=== PATIENT | female | born 1930 | race African-American/Black ===

== ENCOUNTER 2017-11-07 16:17 | Emergency (ER) | payer OTHER ==
[~2017-11-07] VITALS: Ht 152.4 cm; Wt 65.8 kg
--- NOTE | ~2017-11-07 | EKG ---
[facility] [place] [address] ELECTROCARDIOGRAM REPORT Name: ALBERTINA GUZMAN Room #: DEP MELISSA Dominique#: [id number] Admission: 11/07/17 Attend Phys: Discharge: 11/07/17 Date of : [birth year] Report #: [id number] THIS REPORT FOR: //name// [facility] ED Test Date: 2017-11-07 Test Time: 18:01:41 Pat Name: ALBERTINA GUZMAN Department: Room: Gender: F Vascular Sonographer: SARIAH : 1930 Requested By: Peg Love Order Number: [id number] MD: Baldo Pierre Measurements Intervals [place] Rate: 55 P: -4 [place]: 197 QRS: -16 QRSD: 92 T: -15 QT: 446 QTc: 427 Interpretive Statements Sinus bradycardia Borderline left axis deviation Nonspecific T wave abnormality Compared to ECG 12/02/2016 09:15:28 No significant changes Electronically Signed On 11-10-2017 7:16:50 REIMBURSEMENT REP by Baldo Pierre [email or web address] <ELECTRONICALLY SIGNED> By: Baldo Pierre MD, [facility] 11/10/17 0716 180 00 Baldo Pierre MD, FACC /EPI
[~2017-11-07 16:17] MED LIST: ADVAIR 100-501 EACH INH; ANTIVERT25 MG PO; ANUSOL-HC25 MG RECTAL; ASPIR 8181 MG PO; ATENOLOL 25MG T25 MG PO; CELEXA20 MG PO; CENTRUM SILVER1 EAC4 PO; COZAAR 25 MG TA25 M1 PO; FLOVENT DISKUS50 MCG IH; NORCO 5-325 TA1 EACH PO; PREDNISONE 20 M20 M1 PO; PRENATAL PO; PROCARDIA XL60 MG PO; PROTONIX40 M1 PO; RESTORIL15 MG PO; TRANSDERM-SCO1 PATC1 TD; TRAVATAN Z2.5 ML OPHTHALMIC; VITAMIN D1000 UNI1 PO; VITAMIN E100 UNIT PO; XANAX 0.5 MG0.5 M1 PO; ZANAFLEX4 MG PO
[2017-11-07 17:48] LABS: ABSOLUTE NEUTROPHILS 1.9 thou/uL (1.4-8.2); EOSINOPHILS 11.4 % (0.0-3.0); HEMATOCRIT 33.5 % (37.0-47.0); MCH 29.6 pg (26.0-34.0); MCHC 32.8 g/dL (28.0-37.0); MCV 90.3 fL (80.0-100.0); MONOCYTES 10.5 % (1.0-8.0); PLATELET COUNT 163 thou/uL (150-400); POLYS 34.1 % (36.0-66.0); RBC 3.71 mil/uL (4.20-5.00); RDW 13.7 % (10.5-14.5); WBC 5.6 thou/uL (4.0-11.0)
[2017-11-07 17:54] LABS: CALCIUM 9.3 mg/dL (8.5-10.1); CREATININE 1.4 mg/dL (0.6-1.0); POTASSIUM 3.6 mmol/L (3.5-5.1)
[2017-11-07] MEDS ORDERED: DIOVAN 80 MG TA80 M1 PO (17:57)
[2017-11-07] MEDS ORDERED: ZANTAC 150MG T150 MG PO (17:57)
[2017-11-07 18:00] LABS: ALBUMIN 3.4 g/dL (3.4-5.0); TOTAL BILIRUBIN 0.4 mg/dL (<0.1-1.0); TOTAL PROTEIN 6.6 g/dL (6.4-8.2)
[2017-11-07 18:09] LABS: URINE BILIRUBIN NEGATIVE (Negative); URINE BLOOD NEGATIVE (Negative); URINE CLARITY CLEAR; URINE COLOR YELLOW; URINE GLUCOSE-RANDOM* NEGATIVE (Negative); URINE KETONES NEGATIVE (Negative); URINE LEUKOCYTES NEGATIVE (Negative); URINE NITRITE NEGATIVE (Negative); URINE PROTEIN (DIPSTICK) NEGATIVE (Negative); URINE UROBILINOGEN 0.2 E.U./dl (0.2-1.0)
[2017-11-07 18:22] LABS: LARGE PLATELETS RARE
[2017-11-07 19:50] VITALS: BP 151/57
== END 2017-11-07 19:50 | disposition home or self-care (01) ==
LOC: ER 16:17
PROVIDERS: Physician Assistant
DX: I12.9 Hypertensive chronic kidney disease with stage 1 through stage 4 chronic kidney disease, or unspecified chronic kidney disease (principal); N18.3 Chronic kidney disease, stage 3 (moderate); K21.9 Gastro-esophageal reflux disease without esophagitis; Z88.1 Allergy status to other antibiotic agents

== ENCOUNTER 2018-01-11 16:02 | Inpatient (IN) | payer OTHER ==
[~2018-01-11] VITALS: Ht 152.4 cm; Wt 75.6 kg
--- NOTE | ~2018-01-11 | EKG ---
[address] [address] ELECTROCARDIOGRAM REPORT Name: ALBERTINA GUZMAN Room #: 212-P ADM IN M.R.#: [id number] Admission: 01/11/18 Attend Phys: Олег Ge MD Discharge: Date of : [birth year] Report #: [id number] THIS REPORT FOR: //name// [facility] ED Test Date: 2018-01-11 Test Time: 16:19:13 Pat Name: ALBERTINA GUZMAN Department: Room: [facility] Gender: F Show Host Or Hostess: Omayra STREETER : 1930 Requested By: Oziel Rea Order Number: [id number] MD: Jas Shahid Measurements Intervals [place] Rate: 125 P: [place]: QRS: -27 QRSD: 72 T: 9 QT: 325 QTc: 469 Interpretive Statements Atrial flutter Borderline left axis deviation Abnormal R-wave progression, late transition Compared to ECG 11/07/2017 18:01:41 Sinus bradycardia no longer present T-wave abnormality no longer present Electronically Signed On 01-11-2018 20:06:59 CDT by Jas Shahid [email or web address] <ELECTRONICALLY SIGNED> By: Jas Shahid MD 01/11/182005 1619 18 Jas Shahid MD /EPI
--- NOTE | ~2018-01-11 | 2DMMODE ---
[facility] [place] [address] 2 D/M-MODE ECHOCARDIOGRAM Name: ALBERTINA GUZMAN Room #: 247-P ADM IN M.R.#: [id number] Admission: 01/11/18 Attend Phys: Олег Ge MD Discharge: Date of : [birth year] Date of Service: 01/15/18 1633 Report #: [id number] THIS REPORT FOR: //name// APPROVED REPORT Study performed: 01/15/2018 14:17:22 EXAM: Limited 2D, Doppler, and color-flow Echocardiogram Patient Location: ICU Room #: 247 Status: stat BSA: 1.62 HR: 95 bpm BP: 110/58 mmHg Rhythm: Irregular Other Information Study Quality: Adequate Indications STAT limited echo for Bradycardia. S/P code. Afib. (Complete echo done 01/12/18) Tricuspid Valve TR Peak Herman.: 3.35 m/s RAP Estimate: 10.00 mmHg TR Peak Gr.: 44.97 mmHg PA Pressure: 55.00 mmHg Left Ventricle The left ventricle is normal size. Left ventricular systolic function is normal. LVEF is 60-65%. Right Ventricle The right ventricle is normal size. The right ventricular systolic function is normal. Atria Left atrium is dilated. Right atrium is dilated. Aortic Valve The aortic valve is normal in structure. Mitral Valve The mitral valve is normal in structure. Mild mitral annular calcification. Trace mitral regurgitation. [facility] [address] [place] [address] 2 D/M-MODE ECHOCARDIOGRAM Name: ALBERTINA GUZMAN Room #: 247-P ADM IN M.R.#: [id number] Admission: 01/11/18 Attend Phys: Олег Ge MD Discharge: Date of : [birth year] Date of Service: 01/15/181632 Report #: [id number] Tricuspid Valve The tricuspid valve is normal in structure. Moderate tricuspid regurgitation. Estimated PAP is 55mmHg. Great Vessels IVC is normal in size and collapses <50% with inspiration. Pericardium Trivial Posterior pericardial effusion noted. <Conclusion> The left ventricle is normal size. LVEF is 60-65%. The right ventricle is normal size. Left atrium is dilated. Right atrium is dilated. The mitral valve is normal in structure. Mild mitral annular calcification. Trace mitral regurgitation. Moderate tricuspid regurgitation. Estimated PAP is 55mmHg. Trivial Posterior pericardial effusion noted. <ELECTRONICALLY SIGNED> By: Albert Espinoza MD, FACC 01/15/181632 32 32 Albert Espinoza MD, FACC /INF
--- NOTE | ~2018-01-11 | HC ---
[facility] [place] [address] CONSULTATION Name: ALBERTINA GUZMAN Room #: 201-P [facility] IN M.R.#: [id number] Admission: 01/11/18 Attend Phys: Олег Ge MD Discharge: 01/22/18 Date of : [birth year] Report #: [id number] THIS REPORT FOR: //name// CC: Fran Ge [facility] DATE OF SERVICE: 01/15/2018 REFERRING PROVIDER: Fran Moore MD. REASON FOR CONSULTATION: Respiratory failure, status post arrest. HISTORY OF PRESENT ILLNESS: Responded to code blue at room 247 in the ICU, was paged overhead. The patient was being intubated by Dr. Crowder of the Emergency Department and other staff in the room assisting with management. The patient had a bradycardic process, did not require any CPR, but did require bag mask ventilation by respiratory therapy until intubated. The patient was poorly responsive, had been on dopamine and been on amiodarone as well as diltiazem and beta blockers and was anxious to be discharged and developed significant somnolence and poorly unresponsive, transferred to ICU and as mentioned to be bradycardic, placed on dopamine, received atropine IV. The patient was being transcutaneously paced on my arrival. Once intubated, the patient had good breath sounds bilaterally. Attempted a right radial arterial line to assist with management unsuccessfully. The patient's [place] heart rhythm returned with what appeared to be atrial fibrillation with a rate between 70 and 90 consistently without transcutaneous pace making. Currently is poorly responsive, but did respond to pain with attempts at radial arterial line on ventilator support. ALLERGIES: NEOMYCIN, ATORVASTATIN. PAST MEDICAL HISTORY: 1. Sarcoidosis, severity unclear. Based on radiographs, probably stage 1 or 2 sarcoidosis. 2. History of meningioma of the brain, stable on recent imaging. 3. Atrial fibrillation. 4. Chronic renal insufficiency, stage 3. 5. Hiatal hernia. 6. Gastroesophageal reflux disease. 7. Hypertension. 8. Asthma, severity uncertain in the records. OUTPATIENT MEDICATIONS: Include Advair, Zantac, valsartan, Protonix, atenolol, Celexa, Xanax, Flonase, aspirin, Zanaflex, Travatan eyedrops, Restoril, Moneta. [address] [address] CONSULTATION Name: ALBERTINA GUZMAN Room #: 201-P [facility] IN M.R.#: [id number] Admission: 01/11/18 Attend Phys: Олег Ge MD Discharge: 01/22/18 Date of : [birth year] Report #: [id number] SOCIAL HISTORY: Apparently a never smoker. Unable to get any history from the patient. FAMILY HISTORY: Unobtainable due to patient's neurologic status. REVIEW OF SYSTEMS: Unavailable due to the patient's neurologic status. PHYSICAL EXAMINATION: GENERAL: The patient is afebrile. Pulse in the 80s and irregular. Respiratory rate 18 set on the mechanical ventilator. Blood pressure 90/70. GENERAL: This is an elderly woman, appears younger than stated age, on mechanical ventilatory support, unresponsive. ENT: Reveals somewhat dilated pupils. NECK: Supple. LUNGS: Clear to auscultation anteriorly. No wheezes. CARDIOVASCULAR: Heart was irregular, did not note any murmurs. ABDOMEN: Soft, no masses. EXTREMITIES: Had 2+ pulses in the upper and lower extremities. No edema. INTEGUMENT: No significant rash identified. LABORATORY DATA: White blood cell count was 5000, hemoglobin 11, hematocrit 32, platelet count 162. Sodium 140; potassium 4.8; chloride 108; bicarbonate 22; BUN 33; creatinine 2.2, stable compared to earlier; glucose 133. Troponin negative. Arterial blood gas at the time of resuscitation 7.30, pCO2 of 40, pO2 of 375, bicarbonate 19. This is with bag mask ventilation. Chest x-ray is pending. Prior chest x-ray on 01/11/2018 showed significant cardiomegaly with left atrial enlargement, mediastinal widening consistent with bilateral adenopathy, splaying of the yony. Multiple calcifications noted in the subcarinal area and right paratracheal area suggestive of calcified lymph nodes and possibly calcified nodules in the right lung also seen consistent with known history of sarcoid or other granulomatous disease. IMPRESSION: 1. Status post bradycardic arrest. No significant need for CPR. I do not see a need for hypothermia protocol. At this time, patient responsive to pain, but not arousable just yet. Otherwise, Cardiology to manage. No indication for transvenous pacer at this time. 2. Respiratory failure secondary to #1. The patient will just need supportive care until neurologic and cardiovascular statuses improve. 3. History of sarcoidosis. We will have to take further history from the patient post-extubation. 4. History of asthma. Continue with bronchodilators. No evidence of active bronchospasm. 5. Chronic renal insufficiency. SUGGESTIONS: [facility] [address] [place] [address] CONSULTATION Name: ALBERTINA GUZMAN Room #: 201-P DIS IN M.R.#: [id number] Admission: 01/11/18 Attend Phys: Олег Ge MD Discharge: 01/22/18 Date of : [birth year] Report #: [id number] 1. PICC line placement. 2. Await echo. 3. Continue with dopamine per Cardiology. 4. Consider CT of the chest to further evaluate lung findings, but these may be chronic and related to her sarcoidosis. 5. Reattempt placement of arterial line and the patient remains significantly hypotensive requiring pressors. 6. Await additional laboratories particular with electrolytes. 7. Further recommendations to follow. Total critical care time about 40 minutes to this point including attempted procedure. <ELECTRONICALLY SIGNED> By: Evan Madrid MD 01/26/18 1204 1500 2126 Evan Madrid MD /nt
--- NOTE | ~2018-01-11 | D ---
[facility] [place] [address] DISCHARGE SUMMARY Name: ALBERTINA GUZMAN Room #: 201-P ADM IN M.R.#: [id number] Admission: 01/11/18 Attend Phys: Олег Ge MD Discharge: Date of : [birth year] Report #: [id number] THIS REPORT FOR: //name// CC: Олег Morales Byron DATE OF SERVICE: 01/20/2018 SPECIAL OFFICER: Baldo Pierre MD from Cardiology. DISCHARGE DIAGNOSES: 1. Sick sinus syndrome/severe bradycardia. 2. Atrial fibrillation. 3. Congestive heart failure. 4. Dysphagia and speech difficulty likely secondary to Sjogren syndrome. 5. Acute kidney injury. 6. Chronic kidney disease. 7. Acute respiratory failure. 8. Sarcoidosis. 9. Acute metabolic encephalopathy. HOSPITAL COURSE: The patient is an 87-year-old female with history of hypertension, chronic kidney disease, sarcoidosis, asthma, meningioma, frequent falls at home with elevated blood pressure over the last few weeks precipitated over the last 2 days, presented to the Emergency Room secondary to elevated blood pressure and dizziness. Please look at history and physical examination dictated by Dr. Ge. In the Emergency Room, the patient was noted to be in AFib with RVR and hypertensive urgency. The patient also had acute on chronic renal failure. The patient was started on a Cardizem drip and admitted to the ICU. Initial lab work showed a potassium of 3.7, BUN and creatinine were 19 and 1.8. The patient was evaluated by vp software support. The patient underwent an echocardiogram, which showed normal ejection fraction. The patient coded on 01/15/2018. CPR was performed and the patient was intubated. The patient's secondary to bradycardia. The Cardizem was discontinued. The patient will restart back on a very low dose of atenolol 12.5 mg once a day. The patient also seen by Geriatric Service. Cognitive impairment is related to metabolic encephalopathy with possible underlying dementia. The patient was seen by atomic welder for dysphagia, underwent a video swallow study. The patient is able tolerate p.o. The patient also treated for bradycardia on dopamine drip. The patient has been off the dopamine drip for more than 48 hours. The patient's kidney functions have improved. The patient will be discharged to rehab center for inpatient physical and occupational therapy. Please look at the discharge summary completed for detailed information and the [facility] [address] [place] [address] DISCHARGE SUMMARY Name: ALBERTINA GUZMAN Room #: 201-P [facility] IN M.R.#: [id number] Admission: 01/11/18 Attend Phys: Олег Ge MD Discharge: Date of : [birth year] Report #: [id number] medication list. The patient needs renal function monitored closely in the rehab unit. The patient will follow up with PCP and Cardiology as outpatient. By: 1757 2044 Arun Dawson MD /nt
--- NOTE | ~2018-01-11 | EKG ---
[address] [address] ELECTROCARDIOGRAM REPORT Name: ALBERTINA GUZMAN Room #: 247-P ADM IN M.R.#: [id number] Admission: 01/11/18 Attend Phys: Олег Ge MD Discharge: Date of : [birth year] Report #: [id number] THIS REPORT FOR: //name// [facility] Test Date: 2018-01-16 Test Time: 09:24:21 Pat Name: ALBERTINA GUZMAN Department: Room: 247 P Gender: F Nurse Staff: Chanel MENDOZA : 1930 Requested By: Leonor Reese Order Number: [id number] MD: Baldo Pierre Measurements Intervals [place] Rate: 76 P: [place]: QRS: 15 QRSD: 82 T: 25 QT: 390 QTc: 439 Interpretive Statements Atrial fibrillation Poor R wave progression Compared to ECG 01/15/2018 14:16:40 Atrial flutter no longer present Electronically Signed On 01-16-2018 17:24:14 CDT by Baldo Pierre [email or web address] <ELECTRONICALLY SIGNED> By: Baldo Pierre MD, [facility] 01/16/18 1724 3 3 Baldo Pierre MD, [facility] /EPI
--- NOTE | ~2018-01-11 | HC ---
[facility] [place] [address] CONSULTATION Name: ALBERTINA GUZMAN Room #: 201-P ADM IN M.R.#: [id number] Admission: 01/11/18 Attend Phys: Олег Ge MD Discharge: Date of : [birth year] Report #: [id number] THIS REPORT FOR: //name// CC: Олег Matthews REASON FOR CONSULTATION: I was asked to evaluate concerning change in mental status and possible urinary tract infection as source. HISTORY OF PRESENT ILLNESS: The patient was an 87-year-old who was admitted on 01/11/2018 with atrial fibrillation, rapid ventricular response with hypertensive urgency. She was admitted to the Intensive Care Unit. Following initial treatment she became bradycardic and required intubation and mechanical ventilation. She was later extubated and has been placed on oxygen per nasal cannula. Overall, was improving, although last evening became more sedated and confused. No fever, chills or sweats. The patient unable to give much detail, but in discussion with attending and nursing staff, appears to have had ongoing mild headache and some neck discomfort. No pharyngitis symptoms. Denies any significant cough or sputum production. No nausea, vomiting or diarrhea. She is incontinent of urine. She was started on ceftriaxone today. Neurology has evaluated the patient and is currently undergoing an EEG. ALLERGIES: ATORVASTATIN, NEOMYCIN. MEDICATIONS: As noted on her MAR including alprazolam, meclizine, baclofen, hydrocodone in addition to the other medications as noted on her MAR. Ceftriaxone was started today. PAST MEDICAL HISTORY: Hypertension, hyperlipidemia, chronic kidney disease, asthma, sarcoidosis, meningioma, cardiomyopathy, DJD, hiatal hernia, gastroesophageal reflux, diverticulitis. FAMILY HISTORY: Noncontributory. SOCIAL HISTORY: Nonsmoker, no significant alcohol intake. REVIEW OF SYSTEMS: As noted above. PHYSICAL EXAMINATION: GENERAL: Currently afebrile, hemodynamically stable. She was lethargic, but awoken and able to converse. She was confused. Very weak. Did complain of headache. HEENT: Unremarkable. NECK: Supple. LUNGS: Clear. HEART: Irregular without appreciable murmur. ABDOMEN: Soft and nontender. No hepatosplenomegaly or mass. She had a right [facility] [address] [place] [address] CONSULTATION Name: ALBERTINA GUZMAN Room #: [address] [place] [address] IN .R.#: [id number] Admission: 01/11/18 Attend Phys: Олег Ge MD Discharge: Date of : [birth year] Report #: [id number] IJ catheter, which was unremarkable. She was obese. GENITOURINARY: She was incontinent of urine. EXTREMITIES: Generalized weakness seen, left greater than right in the upper extremities along with bilateral lower extremity weakness. LABORATORY STUDIES: MRI scan of the head, no acute intracranial abnormalities. Abdominal x-ray shows barium throughout the colon with distended rectum suggesting fecal impaction and constipation. Sodium 142, potassium 4.8, bicarbonate 23, creatinine 1.1. Hemoglobin 8.3, WBC 7.5, platelet count 138,000. Urinalysis, moderate bacteria, few wbc's. Last chest x-ray here was on 01/16/2018 with left lower lobe atelectasis and effusion. IMPRESSION: An 87-year-old with change in mental status, I am suspecting drug effect most likely. She has no fever, white count is normal and I am finding no end-organ disease on examination. It is still possible could be dealing with pneumonia or urinary tract infection. RECOMMENDATION: We will continue ceftriaxone as previously ordered. We will await cultures of the urine as well as obtain chest x-ray. Also, obtain blood cultures. Make adjustments as necessary pending further studies. I agree with Neurology evaluation and recommendations. I have discussed with attending. <ELECTRONICALLY SIGNED> By: Danish Diamond MD 01/22/18 1212 1417 193 Danish Diamond MD /nt
--- NOTE | ~2018-01-11 | HC ---
[facility] [place] [address] CONSULTATION Name: ALBERTINA GUZMAN Room #: 201-P [facility] IN M.R.#: [id number] Admission: 01/11/18 Attend Phys: Олег Ge MD Discharge: Date of : [birth year] Report #: [id number] THIS REPORT FOR: //name// CC: Олег Morales Byron DATE OF SERVICE: 01/17/2018 GANG MOWER OPERATOR Deandre Rolle M.D., specialty Otolaryngology REASON FOR CONSULTATION: Difficulty swallowing and weak voice. HISTORY OF PRESENT ILLNESS: The patient is an 87-year-old female admitted with new onset atrial fibrillation and hypotension. She had deterioration in her condition on 01/15/2018 requiring intubation. She was extubated on 01/16/2018. She has had weak voice and difficulty swallowing. I was asked to assess this. Apparently, she had a successful video swallow study prior to her intubation. PHYSICAL EXAMINATION: GENERAL: Elderly female, resting comfortably in ICU bed. HEENT: Oral, normal mucosa. NECK: No adenopathy or masses. NEUROLOGIC: Cranial nerves normal. Fiberoptic laryngoscopy (Afrin and viscous lidocaine): Normal nasopharynx, normal oropharynx and normal hypopharynx. The supraglottic larynx is normal. There is mild posterior laryngeal and post-glottic and post-cricoid edema, most likely related to recent intubation. The vocal cord mobility is normal. IMPRESSION: Neuromuscular weakness with swallowing and voice related to chronic illness. RECOMMENDATIONS: N.p.o. until speech pathology can assess her swallow and risk for aspiration. This may take a few days before she is capable of resuming oral diet. <ELECTRONICALLY SIGNED> By: Deandre Rolle MD 01/20/18 1753 1322 1336 Deandre Rolle MD /nt
--- NOTE | ~2018-01-11 | HC ---
[facility] [place] [address] CONSULTATION Name: ALBERTINA GUZMAN Room #: 210-P [facility] IN M.R.#: [id number] Admission: 01/11/18 Attend Phys: Олег Ge MD Discharge: Date of : [birth year]/30/[birth year] Report #: [id number] THIS REPORT FOR: //name// CC: Олег Matthews MD DATE OF SERVICE: 01/13/2018 REASON FOR CONSULTATION: Dysphagia and dry mouth. HISTORY OF PRESENT ILLNESS: The patient is an 87-year-old female admitted via the emergency department after her daughter had noticed increase hypertension. She was found to have new onset atrial fibrillation. During the hospitalization, the patient and her daughter has complained of persistent dry mouth and associated difficulty forming a food bolus. The patient has not had really significant episodes of choking, but has been having trouble especially with solid foods such as meat and swallowing her pills. The patient does have a history of gastroesophageal reflux disease and takes Protonix 40 mg daily. She is not really complaining of laryngopharyngeal reflux symptoms such as throat clearing, but does complain of globus. She has had no other associated nausea or vomiting. The patient underwent a video swallow study today, I was able to retrieve the report and review, this showed essentially a normal swallow with no evidence of aspiration. This was done with speech pathology. PAST MEDICAL HISTORY: Significant for atrial fibrillation, new onset with rapid ventricular response, the patient has been placed on diltiazem and is evaluated by cardiology. She has acute over chronic kidney disease, congestive heart failure with pericardial effusion with an ejection fraction of 55-60, currently undergoing diuresis. She has a longstanding history of hypertension, sarcoidosis, reactive airway disease, cardiomegaly, recently has been having difficulty with frequent falls, degenerative joint disease, hiatal hernia, gastroesophageal reflux disease, and diverticulitis. MEDICATIONS: Detailed in her MAR. ALLERGIES: TO ____ AND NEOMYCIN. SOCIAL HISTORY: The patient does have a supportive family. She is a nonsmoker, does not use alcohol and currently lives with her family. REVIEW OF SYSTEMS: The patient was seen in her hospital room. She complains of dry mouth and mild dysphagia. Otherwise, the other 12-point system review of system is negative. [address] [address] CONSULTATION Name: ALBERTINA GUZMAN Room #: 210-P [facility] IN .R.#: [id number] Admission: 01/11/18 Attend Phys: Олег Ge MD Discharge: Date of : 08/30/[birth year] Report #: [id number] PHYSICAL EXAMINATION: GENERAL: Shows a well-developed, asthenic appearing 87-year-old female, she is seen in her hospital room. VITAL SIGNS: Show a temperature of 97.9, pulse varying between 52 and 109 with a blood pressure of 96/60, 100% oxygen saturation on room air. HEAD: She is normocephalic. EYES: Her pupils are equal, round, reactive to light. OTOLOGIC: Mild cerumen. NASAL: Deviated septum to the left, nonobstructing, no polyps, no sinus percussive tenderness. ORAL CAVITY: She is edentulous in the maxilla with a denture in place. Very dry oral mucosa. 1+ tonsils, nonobstructing. Hypopharynx was examined with flexible endoscopy after topical Kenneth-Synephrine and lidocaine. This shows mobile vocal cords, no mass, no pooling of secretions at the cricopharyngeus muscle. NECK: No adenopathy, no masses, no thyromegaly. NEUROLOGIC: Cranial nerves 2-12 are intact. Motor, sensory and cerebellar exams are normal. The patient has had a fairly extensive workup including cardiac workup, pertinent to this examination is the recent video swallow study as detailed above with negative findings for aspiration. ASSESSMENT: 1. Sicca. This may be secondary to anticholinergic effect of her multiple medications, exacerbated by her age. Consideration can be given to further workup including anti-SSA and anti-SSB antibodies, CHEYANNE and rheumatoid factor. The patient also has sarcoidosis, which can affect her salivary production. 2. Dysphagia, multifactorial including dry mouth, dry throat and her reflux. I do not see any evidence of any upper aerodigestive tract obstruction or mass. Vocal cords also appear mobile. Agree with GI consultation for consideration of esophagogastroduodenoscopy to assess for any esophageal outflow lesion. 3. New onset of acute atrial fibrillation with rapid ventricular response, currently under treatment. 4. Acute over chronic kidney disease. 5. AMS, currently undergoing workup. PLAN: Agree with current treatment as well as empiric treatment of her gastroesophageal reflux disease and possible laryngopharyngeal reflux component with proton pump inhibitor therapy. We would attempt to minimize anticholinergic effect of medications. I have informed the patient that she should always have water handy. I am concerned with the use of the Evoxac 30 mg t.i.d. exacerbating her mental status changes and would like to hold. I have recommended the patient to follow up in the office for repeat examination post discharge. I appreciate the consultation and ability to evaluate her. I will [address] [address] CONSULTATION Name: ALBERTINA GUZMAN Room #: 210-P ADM IN M.R.#: [id number] Admission: 01/11/18 Attend Phys: Олег Ge MD Discharge: Date of : 08/30/[birth year] Report #: [id number] not plan to follow on a regular basis, but otolaryngology is available for any changes in status. <ELECTRONICALLY SIGNED> By: Glen Brandon MD 01/14/18 1523 1543 1838 Glen Brandon MD /nt
--- NOTE | ~2018-01-11 | EKG ---
[address] [address] ELECTROCARDIOGRAM REPORT Name: ALBERTINA GUZMAN Room #: 247-P ADM IN M.R.#: [id number] Admission: 01/11/18 Attend Phys: Олег Ge MD Discharge: Date of : 08/30/[birth year] Report #: [id number] THIS REPORT FOR: //name// [facility] Test Date: 2018-01-15 Test Time: 14:16:40 Pat Name: ALBERTINA GUZMAN Department: Room: 247 P Gender: F Tube Dispatcher: DENISE : 1930 Requested By: Evan Madrid Order Number: [id number] MD: Baldo Pierre Measurements Intervals [place] Rate: 64 P: [place]: QRS: -24 QRSD: 88 T: -2 QT: 463 QTc: 478 Interpretive Statements Atrial flutter Borderline left axis deviation Poor R wave progression Compared to ECG 01/11/2018 16:19:13 Heart rate has increased Electronically Signed On 01-15-2018 17:34:49 CDT by Baldo Pierre [email or web address] <ELECTRONICALLY SIGNED> By: Baldo Pierre MD, [facility] 01/15/18 1734 1416 1416 Baldo Pierre MD, [facility] /EPI
--- NOTE | ~2018-01-11 | O ---
[facility] [place] [address] OPERATIVE REPORT Name: ALBERTINA GUZMAN Room #: 210-P [facility] IN M.R.#: [id number] Admission: 01/11/18 Attend Phys: Олег Ge MD Discharge: Date of : 08/30/29 Report #: [id number] THIS REPORT FOR: //name// CC: Олег Morales [place] DATE OF SERVICE: 01/13/2018 PREOPERATIVE DIAGNOSES: 1. Dysphagia. 2. Xerostomia. POSTOPERATIVE DIAGNOSES: 1. Dysphagia. 2. Xerostomia. PROCEDURE: Flexible nasopharyngoscopy. DESCRIPTION OF PROCEDURE: In the patient's hospital room, topical anesthesia was achieved with 1% Xylocaine with 4% lidocaine. After an appropriate period, a flexible nasopharyngoscope was passed. Complete examination was made of the nose, nasopharynx, oropharynx, hypopharynx and larynx. Nasal cavity shows a deviated septum to the left with dry mucosa. No polyps. No other masses. Nasopharynx is clear. Oropharynx is clear. Hypopharynx, dry mucosa, mobile vocal cords, no mass, no nodule, no pooling of secretion of the cricopharyngeus. The patient tolerated the procedure well. The nasopharyngoscope was removed without problem. The above findings were discussed with the patient. <ELECTRONICALLY SIGNED> By: Glen Brandon MD 01/14/18 1522 1547 1559 Glen Brandon MD /antoinette
--- NOTE | ~2018-01-11 | EKG ---
[address] [address] ELECTROCARDIOGRAM REPORT Name: ALBERTINA GUZMAN Room #: 201-P ADM IN M.R.#: [id number] Admission: 01/11/18 Attend Phys: Олег Ge MD Discharge: Date of : 08/30/[birth year] Report #: [id number] THIS REPORT FOR: //name// [facility] Test Date: 2018-01-20 Test Time: 21:14:38 Pat Name: ALBERTINA GUZMAN Department: Room: 201 P Gender: F Continuity Reader: JLJOSE : 1930 Requested By: Олег Ge Order Number: [id number] MD: Baldo Pierre Measurements Intervals [place] Rate: 94 P: [place]: QRS: 6 QRSD: 76 T: 4 QT: 344 QTc: 431 Interpretive Statements Atrial fibrillation Compared to ECG 01/16/2018 09:24:21 No significant change was found Electronically Signed On 01-21-2018 8:07:01 CDT by Baldo Pierre [email or web address] <ELECTRONICALLY SIGNED> By: Baldo Pierre MD, [facility] 01/21/18 0807 13 13 Baldo Pierre MD, FACC /EPI
--- NOTE | ~2018-01-11 | 2DMMODE ---
[facility] [address] [place] [address] 2 D/M-MODE ECHOCARDIOGRAM Name: ALBERTINA GUZMAN Room #: 210-P ADM IN M.R.#: [id number] Admission: 01/11/18 Attend Phys: Олег Ge MD Discharge: Date of : [birth year]/30/[birth year] Date of Service: 01/12/18 1222 Report #: [id number] THIS REPORT FOR: //name// APPROVED REPORT Study performed: 01/12/2018 10:26:18 EXAM: Comprehensive 2D, Doppler, and color-flow Echocardiogram Patient Location: Bedside Room #: 210 Status: routine BSA: 1.62 HR: 84 bpm BP: 157/83 mmHg Other Information Study Quality: Adequate Indications Atrial Fibrillation Dyspnea Syncope Hypertension/HDD 2D Dimensions LVEF(%): 59.85 (>50%) IVSd: 11.43 (7-11mm) LVOT Diam: 19.23 (18-24mm) LVDd: 43.15 mm PWd: 10.91 (7-11mm) Ascending Ao: 27.14 (22-36mm) LVDs: 29.51 (25-40mm) Aortic Root: 23.31 mm IVC: 24.00 mm Mon's LVEF: 59.85 % Volumes Left Atrial Volume (Systole) Single Plane 4CH: 68.01 mL Aortic Valve AoV Peak Ehrman.: 0.84 m/s AO Peak Gr.: 2.84 mmHg LVOT Max P.40 mmHg LVOT Max V: 0.59 m/s BRANDO Vmax: 2.03 cm2 Pulmonary Valve PV Peak Herman.: 0.96 m/s PV Peak Gr.: 3.79 mmHg [facility] [address] [place] [address] 2 D/M-MODE ECHOCARDIOGRAM Name: ALBERTINA GUZMAN Room #: 210-P ADM IN [facility].#: [id number] Admission: 01/11/18 Attend Phys: Олег Ge MD Discharge: Date of : 08/30/[birth year] Date of Service: 01/12/18 1222 Report #: [id number] Tricuspid Valve TR Peak Hemran.: 2.82 m/s TR Peak Gr.: 31.97 mmHg PA Pressure: 48.00 mmHg Left Ventricle The left ventricle is normal size. Regional wall motion is not well visualized but grossly normal. There is normal left ventricular wall thickness. The left ventricular systolic function is normal. The left ventricular ejection fraction is within the normal range. LVEF is 55-60%. This study is not technically sufficient to allow evaluation of the LV diastolic function due to atrial fibrillation. Right Ventricle The right ventricle is normal size. The right ventricular systolic function is normal. Atria Left atrium is dilated. Right atrium is dilated. Aortic Valve The aortic valve is normal in structure. No aortic regurgitation is present. There is no aortic valvular stenosis. Mitral Valve Mild mitral annular calcification Moderate mitral regurgitation. No evidence of mitral valve stenosis. Tricuspid Valve The tricuspid valve is normal in structure. There is mild to moderate tricuspid regurgitation. Estimated PAP 48 mmHg. There is moderate pulmonary hypertension. Pulmonic Valve The pulmonary valve is normal in structure. Trace pulmonic regurgitation. Great Vessels The aortic root is normal in size. The inferior vena cava is dilated with no inspiratory collapse. Pericardium Moderate circumferential pericardial effusion. [facility] [address] [place] [address] 2 D/M-MODE ECHOCARDIOGRAM Name: ALBERTINA GUZMAN Room #: 210- ADM IN M.R.#: [id number] Admission: 01/11/18 Attend Phys: Олег Ge MD Discharge: Date of : 08/30/[birth year] Date of Service: 01/12/181221 Report #: [id number] <Conclusion> The left ventricular systolic function is normal. Regional wall motion is not well visualized but grossly normal. LVEF is 55-60%. Both atria are dilated. The aortic valve is normal in structure. No aortic valvular stenosis. Mild mitral annular calcification. Moderate mitral regurgitation. Small-moderate circumferential pericardial effusion. <ELECTRONICALLY SIGNED> By: Baldo Pierre MD, [facility] 01/12/181221 21 1222 Baldo Pierre MD, FACC /INF
--- NOTE | ~2018-01-11 | EKG ---
[place] [address] [facility] [place] [address] ELECTROCARDIOGRAM REPORT Name: ALBERTINA GUZMAN Room #: 247-P ADM IN M.R.#: [id number] Admission: 01/11/18 Attend Phys: Олег Ge MD Discharge: Date of : 08/30/[birth year] Report #: [id number] THIS REPORT FOR: //name// [facility] Test Date: 2018-01-15 Test Time: 13:08:20 Pat Name: ALBERTINA GUZMAN Department: Room: [facility] Gender: F Green Chain Worker: Chanel MENDOZA : 1930 Requested By: Fran Moore Order Number: [id number] MD: Baldo Pierre Measurements Intervals [place] Rate: 33 P: [place]: QRS: -11 QRSD: 82 T: -8 QT: 504 QTc: 374 Interpretive Statements Atrial flutter with slow ventricular response Borderline T abnormalities, inferior leads Compared to ECG 01/11/2018 16:19:13 Heart rate has slowed Electronically Signed On 01-15-2018 17:30:43 CDT by Baldo Pierre [email or web address] <ELECTRONICALLY SIGNED> By: Baldo Pierre MD, [facility] 01/15/18 0970 1308 1308 Baldo Pierre MD, [facility] /EPI
[~2018-01-11 16:02] MED LIST changes: +DIOVAN 80 MG TA80 M1 PO; +ZANTAC 150MG T150 MG PO
[2018-01-11 16:10] VITALS: BP 154/99
[2018-01-11 16:42] LABS: ABSOLUTE NEUTROPHILS 2.4 thou/uL (1.4-8.2); BASOPHILS 1.4 % (0.0-2.0); EOSINOPHILS 8.6 % (0.0-3.0); HEMATOCRIT 34.5 % (37.0-47.0); HEMOGLOBIN 11.3 gm/dL (12.0-15.0); LYMPHOCYTES 41.3 % (24.0-44.0); MCH 29.2 pg (26.0-34.0); MCHC 32.6 g/dL (28.0-37.0); MCV 89.5 fL (80.0-100.0); MONOCYTES 11.9 % (1.0-8.0); PLATELET COUNT 171 thou/uL (150-400); POLYS 36.8 % (36.0-66.0); RBC 3.86 mil/uL (4.20-5.00); RDW 14.3 % (10.5-14.5); WBC 6.4 thou/uL (4.0-11.0)
[2018-01-11 16:49] LABS: ANION GAP 7 mmol/L (7-16); BUN 19 mg/dL (7-18); CALCIUM 9.6 mg/dL (8.5-10.1); CHLORIDE 106 mmol/L (98-107); CO2 24 mmol/L (21-32); CREATININE 1.8 mg/dL (0.6-1.0); GLUCOSE 99 mg/dL (74-106); POTASSIUM 3.7 mmol/L (3.5-5.1); SODIUM 137 mmol/L (136-145)
[2018-01-11 16:57] LABS: TROPONIN-I < 0.04 ng/mL (<0.06)
[2018-01-11 17:41] VITALS: BP 147/99
[2018-01-11 18:26] VITALS: BP 143/67
[2018-01-11 19:50] VITALS: BP 129/76
[2018-01-11 20:23] LABS: FOLIC ACID 19.2 ng/mL (8.6-58.9)
[2018-01-11] MEDS ORDERED: ZETIA10 MG PO (23:12)
[2018-01-12 00:15] VITALS: BP 144/68
[2018-01-12] MEDS ORDERED: HYDRALAZINE 10M10 MG PO (03:46)
[2018-01-12] MEDS ORDERED: OXYBUTYNIN 5 MG5 M2 PO (03:47)
[2018-01-12] MEDS ORDERED: CLONIDINE0.1 PO (03:47)
[2018-01-12] MEDS ORDERED: ADVAIR 100-501 EACH INH (03:48)
[2018-01-12] MEDS ORDERED: ANTIVERT25 MG PO (03:48)
[2018-01-12] MEDS ORDERED: BACTRIM DS TAB1 EACH PO (04:01)
[2018-01-12] MEDS ORDERED: ONDANSETRON HCL4 M2 PO (04:02)
[2018-01-12 04:50] VITALS: BP 157/83
[2018-01-12 05:22] LABS: HEMATOCRIT 35.1 % (37.0-47.0); HEMOGLOBIN 11.6 gm/dL (12.0-15.0); MCH 29.4 pg (26.0-34.0); MCHC 33.2 g/dL (28.0-37.0); MCV 88.5 fL (80.0-100.0); RBC 3.96 mil/uL (4.20-5.00); RDW 14.1 % (10.5-14.5); WBC 6.1 thou/uL (4.0-11.0)
[2018-01-12 05:39] LABS: ANION GAP 11 mmol/L (7-16); BUN 15 mg/dL (7-18); CALCIUM 9.4 mg/dL (8.5-10.1); CHLORIDE 110 mmol/L (98-107); CO2 24 mmol/L (21-32); CREATININE 1.6 mg/dL (0.6-1.0); GLUCOSE 106 mg/dL (74-106); POTASSIUM 3.4 mmol/L (3.5-5.1); TROPONIN-I < 0.04 ng/mL (<0.06)
[2018-01-12 05:40] LABS: SODIUM 145 mmol/L (136-145)
[2018-01-12 07:00] VITALS: BP 148/76
[2018-01-12 08:38] LABS: CHOLESTEROL 194 mg/dL (<200); HDL CHOLESTEROL 60 mg/dL (>40); LDL CHOLESTEROL 122 mg/dL (<100); TC:HDL 3.2 Ratio (Not establshd); TRIGLYCERIDE 61 mg/dL (<150); VLDL 12 mg/dL (<40)
[2018-01-12 13:00] VITALS: BP 152/91
[2018-01-12 16:40] VITALS: BP 146/76
[2018-01-12 19:55] VITALS: BP 151/81
[2018-01-12] MEDS ORDERED: ADVAIR 250-501 EACH INH (23:45)
[2018-01-12] MEDS ORDERED: MIRALAX17 GM PO (23:56)
[2018-01-13] MEDS ORDERED: TUMS PO (00:03)
[2018-01-13 04:50] VITALS: BP 142/86
[2018-01-13 07:05] VITALS: BP 156/93
[2018-01-13 07:49] LABS: HEMOGLOBIN 11.3 gm/dL (12.0-15.0); MCH 29.7 pg (26.0-34.0); MCHC 33.2 g/dL (28.0-37.0); MCV 89.4 fL (80.0-100.0); RBC 3.8 mil/uL (4.20-5.00); RDW 14.3 % (10.5-14.5); WBC 6.8 thou/uL (4.0-11.0)
[2018-01-13 07:54] LABS: CALCIUM 9.1 mg/dL (8.5-10.1); CREATININE 1.7 mg/dL (0.6-1.0); MAGNESIUM 1.8 mg/dL (1.8-2.4); POTASSIUM 3.9 mmol/L (3.5-5.1)
[2018-01-13 12:15] VITALS: BP 96/60
[2018-01-13 15:35] VITALS: BP 96/44
[2018-01-13 20:52] VITALS: BP 123/54
[2018-01-14 03:46] LABS: CALCIUM 8.7 mg/dL (8.5-10.1); CREATININE 2.3 mg/dL (0.6-1.0); MAGNESIUM 1.9 mg/dL (1.8-2.4); POTASSIUM 4.4 mmol/L (3.5-5.1)
[2018-01-14 04:39] LABS: HEMOGLOBIN 10.5 gm/dL (12.0-15.0); MCH 29.1 pg (26.0-34.0); MCHC 32.7 g/dL (28.0-37.0); MCV 88.9 fL (80.0-100.0); RBC 3.6 mil/uL (4.20-5.00); RDW 14.4 % (10.5-14.5); WBC 6.9 thou/uL (4.0-11.0)
[2018-01-14 04:45] VITALS: BP 122/47
[2018-01-14 06:57] VITALS: BP 135/89
[2018-01-14 11:22] VITALS: BP 92/51
[2018-01-14 15:55] VITALS: BP 95/60
[2018-01-14 21:01] VITALS: BP 109/66
[2018-01-15] VITALS (77 sets, daily range): BP systolic 75–157; BP diastolic 35–131
[2018-01-15 03:30] LABS: CALCIUM 8.7 mg/dL (8.5-10.1); CREATININE 2.1 mg/dL (0.6-1.0); MAGNESIUM 2.1 mg/dL (1.8-2.4); POTASSIUM 4.7 mmol/L (3.5-5.1)
[2018-01-15 03:37] LABS: HEMATOCRIT 34.2 % (37.0-47.0); HEMOGLOBIN 11.1 gm/dL (12.0-15.0); MCH 29.1 pg (26.0-34.0); MCHC 32.6 g/dL (28.0-37.0); MCV 89.1 fL (80.0-100.0); RBC 3.83 mil/uL (4.20-5.00); RDW 14.4 % (10.5-14.5); WBC 6.3 thou/uL (4.0-11.0)
[2018-01-15] MEDS ORDERED: ELIQUIS2.5 MG PO (10:00)
[2018-01-15] MEDS ORDERED: ATENOLOL 25MG T25 MG PO (10:01)
[2018-01-15] MEDS ORDERED: CARDIZEM CD 18180 M3 PO (10:01)
[2018-01-15 13:37] LABS: BASOPHILS 1.5 % (0.0-2.0); EOSINOPHILS 8.3 % (0.0-3.0); HEMATOCRIT 32.4 % (37.0-47.0); HEMOGLOBIN 10.6 gm/dL (12.0-15.0); LYMPHOCYTES 43.7 % (24.0-44.0); MCH 29.4 pg (26.0-34.0); MCHC 32.6 g/dL (28.0-37.0); MCV 90.4 fL (80.0-100.0); MONOCYTES 9.4 % (1.0-8.0); PLATELET COUNT 162 thou/uL (150-400); POLYS 37.1 % (36.0-66.0); RBC 3.59 mil/uL (4.20-5.00); RDW 14.7 % (10.5-14.5); WBC 5.4 thou/uL (4.0-11.0)
[2018-01-15 13:41] LABS: CALCIUM 8.7 mg/dL (8.5-10.1); CREATININE 2.2 mg/dL (0.6-1.0); POTASSIUM 4.8 mmol/L (3.5-5.1)
[2018-01-15 14:09] LABS: BE(vivo) -6.6 mmol/L (-2 to +3); HCO3 19.4 mmol/L (22.0-26.0); PCO2 40.4 mmHg (35.0-45.0); PO2 374.5 mmHg (80.0-100.0); pH 7.299 (7.360-7.450); sO2 99.8 % (92.0-98.0)
[2018-01-15 14:31] LABS: ALBUMIN 3.1 g/dL (3.4-5.0); CALCIUM 8.6 mg/dL (8.5-10.1); CREATININE 2.2 mg/dL (0.6-1.0); MAGNESIUM 2.1 mg/dL (1.8-2.4); PHOSPHORUS 3.9 mg/dL (2.5-4.9)
[2018-01-15 16:34] LABS: BE(vivo) -5.7 mmol/L (-2 to +3); HCO3 19.6 mmol/L (22.0-26.0); PCO2 37.5 mmHg (35.0-45.0); PO2 80.5 mmHg (80.0-100.0); pH 7.335 (7.360-7.450); sO2 95.3 % (92.0-98.0)
[2018-01-16] VITALS (80 sets, daily range): BP systolic 78–127; BP diastolic 40–95
[2018-01-16 05:18] LABS: BE(vivo) -3.5 mmol/L (-2 to +3); HCO3 20.4 mmol/L (22.0-26.0); PCO2 32.8 mmHg (35.0-45.0); pH 7.411 (7.360-7.450); sO2 99.3 % (92.0-98.0)
[2018-01-16 05:39] LABS: HEMATOCRIT 31.6 % (37.0-47.0); HEMOGLOBIN 10.3 gm/dL (12.0-15.0); MCH 29.1 pg (26.0-34.0); MCHC 32.7 g/dL (28.0-37.0); MCV 89.2 fL (80.0-100.0); RBC 3.54 mil/uL (4.20-5.00); RDW 14.3 % (10.5-14.5); WBC 10.2 thou/uL (4.0-11.0)
[2018-01-16 05:46] LABS: CALCIUM 7.8 mg/dL (8.5-10.1); CREATININE 1.7 mg/dL (0.6-1.0); MAGNESIUM 1.7 mg/dL (1.8-2.4); POTASSIUM 4.3 mmol/L (3.5-5.1)
[2018-01-16 11:49] LABS: BE(vivo) -5.2 mmol/L (-2 to +3); HCO3 18.3 mmol/L (22.0-26.0); PCO2 29.3 mmHg (35.0-45.0); PO2 71.4 mmHg (80.0-100.0); pH 7.413 (7.360-7.450); sO2 94.8 % (92.0-98.0)
[2018-01-17] VITALS (68 sets, daily range): BP systolic 84–167; BP diastolic 49–104
[2018-01-17 15:30] LABS: HEMATOCRIT 29.7 % (37.0-47.0); HEMOGLOBIN 9.6 gm/dL (12.0-15.0); MCH 29.1 pg (26.0-34.0); MCHC 32.5 g/dL (28.0-37.0); MCV 89.6 fL (80.0-100.0); RBC 3.32 mil/uL (4.20-5.00); RDW 14.5 % (10.5-14.5); WBC 12.4 thou/uL (4.0-11.0)
[2018-01-17 15:42] LABS: ALBUMIN 2.7 g/dL (3.4-5.0); CREATININE 1.3 mg/dL (0.6-1.0); MAGNESIUM 1.8 mg/dL (1.8-2.4); TOTAL BILIRUBIN 0.6 mg/dL (<0.1-1.0); TOTAL PROTEIN 6.2 g/dL (6.4-8.2)
[2018-01-18] VITALS (26 sets, daily range): BP systolic 95–175; BP diastolic 51–115
[2018-01-18 04:36] LABS: CALCIUM 8.1 mg/dL (8.5-10.1); CREATININE 1.2 mg/dL (0.6-1.0); MAGNESIUM 1.9 mg/dL (1.8-2.4); POTASSIUM 4.1 mmol/L (3.5-5.1)
[2018-01-18 04:41] LABS: HEMATOCRIT 26.5 % (37.0-47.0); HEMOGLOBIN 8.9 gm/dL (12.0-15.0); MCHC 33.5 g/dL (28.0-37.0); MCV 89.6 fL (80.0-100.0); RBC 2.96 mil/uL (4.20-5.00); RDW 14.9 % (10.5-14.5); WBC 9.4 thou/uL (4.0-11.0)
[2018-01-19 04:50] VITALS: BP 155/76
[2018-01-19 05:50] LABS: HEMATOCRIT 27.5 % (37.0-47.0); MCH 29.5 pg (26.0-34.0); MCHC 32.7 g/dL (28.0-37.0); MCV 90.1 fL (80.0-100.0); RBC 3.06 mil/uL (4.20-5.00); RDW 14.7 % (10.5-14.5); WBC 8.3 thou/uL (4.0-11.0)
[2018-01-19 05:55] LABS: CALCIUM 8.1 mg/dL (8.5-10.1); CREATININE 1.2 mg/dL (0.6-1.0); MAGNESIUM 1.9 mg/dL (1.8-2.4); POTASSIUM 4.4 mmol/L (3.5-5.1)
[2018-01-19 07:20] VITALS: BP 159/77
[2018-01-19 12:19] VITALS: BP 141/78
[2018-01-19 19:35] VITALS: BP 140/62
[2018-01-20] VITALS (7 sets, daily range): BP systolic 114–181; BP diastolic 66–97
[2018-01-20 06:05] LABS: HEMATOCRIT 27.8 % (37.0-47.0); HEMOGLOBIN 9.3 gm/dL (12.0-15.0); MCH 29.5 pg (26.0-34.0); MCHC 33.4 g/dL (28.0-37.0); MCV 88.5 fL (80.0-100.0); RBC 3.14 mil/uL (4.20-5.00); RDW 14.7 % (10.5-14.5)
[2018-01-20 06:12] LABS: CREATININE 1.1 mg/dL (0.6-1.0); MAGNESIUM 2.1 mg/dL (1.8-2.4); POTASSIUM 4.4 mmol/L (3.5-5.1)
[2018-01-20] MEDS ORDERED: XALATAN2.5 ML OPHTHALMIC (17:37)
[2018-01-20] MEDS ORDERED: COZAAR 50 MG TA50 M1 PO (17:37)
[2018-01-20] MEDS ORDERED: CATAPRES0.1 MG PO (17:37)
[2018-01-20] MEDS ORDERED: ELIQUIS5 MG PO (17:37)
[2018-01-20] MEDS ORDERED: LIDOPATCH1 EACH TRANSDERM (17:37)
[2018-01-20] MEDS ORDERED: K-DUR 20 MEQ T20 MEQ PO ×2 (17:37→18:02)
[2018-01-20] MEDS ORDERED: ATENOLOL 25 MG25 M1 PO (17:37)
[2018-01-20] MEDS ORDERED: TUMS PO (17:37)
[2018-01-20] MEDS ORDERED: SENNA-TIME S T1 EACH PO (17:37)
[2018-01-20] MEDS ORDERED: ZETIA10 MG PO (17:37)
[2018-01-20] MEDS ORDERED: PULMICORT0.5 MG/21 INH (17:37)
[2018-01-20] MEDS ORDERED: MIRALAX17 GM PO (17:37)
[2018-01-20] MEDS ORDERED: BACLOFEN 10MG T10 MG PO (17:37)
[2018-01-20 23:17] LABS: HEMATOCRIT 28.4 % (37.0-47.0); HEMOGLOBIN 9.3 gm/dL (12.0-15.0); MCH 29.4 pg (26.0-34.0); MCHC 32.8 g/dL (28.0-37.0); MCV 89.4 fL (80.0-100.0); PLATELET COUNT 143 thou/uL (150-400); RBC 3.17 mil/uL (4.20-5.00); RDW 14.4 % (10.5-14.5); WBC 8.2 thou/uL (4.0-11.0)
[2018-01-20 23:24] LABS: ANION GAP 8 mmol/L (7-16); BUN 22 mg/dL (7-18); CALCIUM 8.8 mg/dL (8.5-10.1); CHLORIDE 110 mmol/L (98-107); CO2 23 mmol/L (21-32); CREATININE 1.1 mg/dL (0.6-1.0); GLUCOSE 100 mg/dL (74-106); POTASSIUM 4.6 mmol/L (3.5-5.1); SODIUM 141 mmol/L (136-145)
[2018-01-20 23:33] LABS: APTT 33.2 Seconds (24.5-32.8); INR 1.1; PROTIME 11.5 Seconds (9.3-11.4); TROPONIN-I < 0.04 ng/mL (<0.06)
[2018-01-20 23:45] LABS: ABSOLUTE NEUTROPHILS 5.4 thou/uL (1.4-8.2)
[2018-01-20 23:46] LABS: ANISOCYTOSIS SLIGHT
[2018-01-21 00:21] VITALS: BP 162/84
[2018-01-21 02:03] LABS: URINE BILIRUBIN NEGATIVE (Negative); URINE BLOOD 1+ (Negative); URINE CLARITY CLEAR; URINE COLOR YELLOW; URINE GLUCOSE-RANDOM* NEGATIVE (Negative); URINE KETONES NEGATIVE (Negative); URINE NITRITE-REFLEX NEGATIVE (Negative); URINE PROTEIN (DIPSTICK) NEGATIVE (Negative); URINE UROBILINOGEN 0.2 E.U./dl (0.2-1.0)
[2018-01-21 02:04] LABS: URINE LEUKOCYTES-REFLEX 1+ (Negative)
[2018-01-21 02:44] LABS: SQUAMOUS 4-10 Moderate /LPF (0-3); URINE RBC 3-10 Few /HPF (0-2)
[2018-01-21 02:45] LABS: CASTS None Seen /LPF (None Seen); CRYSTALS None Seen /LPF (None Seen); URINE WBC-REFLEX 6-15 Few /HPF (0-5)
[2018-01-21 04:38] VITALS: BP 142/84
[2018-01-21 04:59] LABS: HEMATOCRIT 25.5 % (37.0-47.0); HEMOGLOBIN 8.3 gm/dL (12.0-15.0); MCH 29.1 pg (26.0-34.0); MCHC 32.6 g/dL (28.0-37.0); MCV 89.4 fL (80.0-100.0); RBC 2.85 mil/uL (4.20-5.00); RDW 14.1 % (10.5-14.5); WBC 7.5 thou/uL (4.0-11.0)
[2018-01-21 05:11] LABS: CALCIUM 8.4 mg/dL (8.5-10.1); CREATININE 1.1 mg/dL (0.6-1.0); MAGNESIUM 1.9 mg/dL (1.8-2.4); POTASSIUM 4.8 mmol/L (3.5-5.1)
[2018-01-21 06:56] VITALS: BP 179/81
[2018-01-21 13:48] VITALS: BP 185/96
[2018-01-21 14:34] VITALS: BP 181/116
[2018-01-21 19:22] VITALS: BP 180/83
[2018-01-22 00:43] VITALS: BP 180/100
[2018-01-22 05:30] VITALS: BP 200/100
[2018-01-22 08:13] VITALS: BP 170/94
[2018-01-22] MEDS ORDERED: ROCEPHIN 11 GM/1001 IV (11:22)
[2018-01-22] MEDS ORDERED: PANTOPRAZOLE SO40 M1 PO (11:22)
[2018-01-22 11:33] LABS: HEMATOCRIT 27.4 % (37.0-47.0); HEMOGLOBIN 9.3 gm/dL (12.0-15.0); MCH 29.9 pg (26.0-34.0); MCHC 33.9 g/dL (28.0-37.0); MCV 88.2 fL (80.0-100.0); RBC 3.1 mil/uL (4.20-5.00); RDW 14.1 % (10.5-14.5); WBC 7.7 thou/uL (4.0-11.0)
[2018-01-22 11:46] LABS: ALBUMIN 2.4 g/dL (3.4-5.0); CALCIUM 8.6 mg/dL (8.5-10.1); CREATININE 1.1 mg/dL (0.6-1.0); MAGNESIUM 1.8 mg/dL (1.8-2.4); POTASSIUM 4.2 mmol/L (3.5-5.1); TOTAL BILIRUBIN 0.4 mg/dL (<0.1-1.0); TOTAL PROTEIN 6.1 g/dL (6.4-8.2)
== END 2018-01-22 14:21 | DRG 291 ==
LOC: ER 16:02 → 2N 16:56 → EROBS 16:56 → 2N 18:33 → ENTRNSPT 01-15 11:33 → EDTRNSPTSTS 01-15 13:03 → ICU 01-15 13:47 → 2N 01-18 17:30
PROVIDERS: Hospitalist; Internal Medicine; Internal Medicine Pulmonary Disease; Nurse Practitioner; Nurse Practitioner Adult Health; Nurse Practitioner Family
DX: I13.0 Hypertensive heart and chronic kidney disease with heart failure and stage 1 through stage 4 chronic kidney disease, or unspecified chronic kidney disease (principal); J96.00 Acute respiratory failure, unspecified whether with hypoxia or hypercapnia; G93.40 Encephalopathy, unspecified; I50.23 Acute on chronic systolic (congestive) heart failure; I48.92 Unspecified atrial flutter; N17.9 Acute kidney failure, unspecified; N39.0 Urinary tract infection, site not specified; I31.3 Pericardial effusion (noninflammatory); G72.81 Critical illness myopathy; I49.5 Sick sinus syndrome; I42.9 Cardiomyopathy, unspecified; M35.00 Sjogren syndrome, unspecified; I48.91 Unspecified atrial fibrillation; N18.3 Chronic kidney disease, stage 3 (moderate); K21.9 Gastro-esophageal reflux disease without esophagitis; M19.90 Unspecified osteoarthritis, unspecified site; R13.10 Dysphagia, unspecified; J45.909 Unspecified asthma, uncomplicated; E78.00 Pure hypercholesterolemia, unspecified; E87.6 Hypokalemia; F03.90 Unspecified dementia, unspecified severity, without behavioral disturbance, psychotic disturbance, mood disturbance, and anxiety; K56.41 Fecal impaction; R69 Illness, unspecified; E78.5 Hyperlipidemia, unspecified; D86.9 Sarcoidosis, unspecified; K11.7 Disturbances of salivary secretion; Z79.82 Long term (current) use of aspirin; Z79.899 Other long term (current) drug therapy; Z88.1 Allergy status to other antibiotic agents; Z88.8 Allergy status to other drugs, medicaments and biological substances
CPT/HCPCS: 10078; 10081; 27000; 85010

== ENCOUNTER 2018-01-20 17:07 | Inpatient (IN) | payer OTHER ==
[~2018-01-20] VITALS: Ht 160 cm; Wt 68.9 kg
--- NOTE | ~2018-01-20 | EKG ---
[address] [address] ELECTROCARDIOGRAM REPORT Name: ALBERTINA GUZMAN Room #: 504-1 ADM IN M.R.#: [id number] Admission: 01/22/18 Attend Phys: Aman Hui MD Discharge: Date of : [birth year]/30/[birth year] Report #: [id number] THIS REPORT FOR: //name// [facility] Test Date: 2018-01-23 Test Time: 13:29:54 Pat Name: ALBERTINA GUZMAN Department: Room: [facility] Gender: F Corner Former: HELGA : 1930 Requested By: Fran Moore Order Number: [id number] MD: Baldo Pierre Measurements Intervals [place] Rate: 105 P: [place]: QRS: -15 QRSD: 82 T: -8 QT: 382 QTc: 506 Interpretive Statements Atrial fibrillation Borderline left axis deviation Borderline T abnormalities, diffuse leads Prolonged QT interval Compared to ECG 01/20/2018 21:14:38 T-wave abnormality now present Prolonged QT interval now present Electronically Signed On 01-25-2018 16:27:24 CDT by Baldo Pierre [email or web address] <ELECTRONICALLY SIGNED> By: Baldo Pierre MD, [facility] 01/25/18 1627 1329 1329 Baldo Pierre MD, [facility] /EPI
--- NOTE | ~2018-01-20 | H ---
[facility] [place] [address] HISTORY AND PHYSICAL Name: ALBERTINA GUZMAN Room #: 504-1 DIS IN M.R.#: [id number] Admission: 01/22/18 Attend Phys: Aman Hui MD Discharge: 01/30/18 Date of : [birth year] Report #: [id number] THIS REPORT FOR: //name// CC: Aman Matthews DATE OF SERVICE: 01/22/2018 ADDENDUM Please see my prior consult and Kim Quezada's dictation with history and physical. I agree with the above. The patient was originally admitted with the new onset atrial fibrillation with rapid ventricular rate and hypertensive urgency. She had bradycardia, required intubation, but no CPR. She was noted to have an encephalopathy as well as critical illness myopathy. She was evaluated by GI and ENT for dysphagia, felt to be multifactorial related to neuromuscular weakness secondary to chronic illnesses and her GERD. EGD showed no narrowing, although it did show some tertiary esophageal contractions related to ineffective esophageal motility. Neurology saw her with stroke workup negative. EEG consistent with moderate to diffuse cerebral dysfunction. She was admitted for acute in-hospital inpatient rehabilitation. She does not have any calf tenderness. Full range of motion of the upper extremities. Oriented to person. Somewhat tangential. Functional range of motion of the upper extremities, 4/5 strength bilateral upper extremities with 3/5 bilateral lower extremities. She needs assistance with basic functional mobility skills. ASSESSMENT AND PLAN: As noted in the documentation. From a postadmission physician evaluation perspective, there are no relevant changes since the preadmission screening. Please see the above review of prior and current medical and functional conditions and comorbidities. Please see the patient's previous and current functional status. As far as risk of complication, she does have the multiple medical comorbidities as noted above. The initial plan of care involves the interdisciplinary acute inpatient rehabilitation program with the goal of maximizing her functional independence, so she can return back to the prior living situation. Measurable functional goals would be for her to become modified independent with transfers, mobility, and ADLs at least at the walker level. Prognosis is reasonably good with estimated length of stay probably at least 7-14 days pending progress. Potential barriers would include her multiple medical comorbidities and decreased functional status. <ELECTRONICALLY SIGNED> By: Aman Hui MD 02/02/18 1221 1237 1405 Aman Hui MD /PMT
--- NOTE | ~2018-01-20 | HC ---
[facility] [place] [address] CONSULTATION Name: ALBERTINA GUZMAN Room #: 504-1 ADM IN M.R.#: [id number] Admission: 01/22/18 Attend Phys: Aman Hui MD Discharge: Date of : 08/30/[birth year] Report #: [id number] THIS REPORT FOR: //name// CC: Aman Germana Byron DATE OF SERVICE: 01/25/2018 ATTENDING PHYSICIAN: Aman Hui MD LEAD FURNACE OPERATOR: Tomi Howard, PhD CLINICAL PRESENTATION: The patient is an 87-year-old female admitted to the rehabilitation unit at [facility] for a comprehensive inpatient rehabilitation program to improve functional mobility, activities of daily living and self-care and mental status secondary to deficits from critical illness myopathy and encephalopathy. On 01/11/2018, he had a new onset of atrial fibrillation with RVR and hypertensive urgency. She was admitted to the ICU, was bradycardic and required intubation. PAST MEDICAL HISTORY: Includes hypertension, hyperlipidemia, chronic kidney disease, asthma, sarcoidosis, meningioma, cardiomyopathy, degenerative joint disease, hiatal hernia, GERD, diverticulitis and recurrent falls and headaches. A complete description of her medical condition and history along with medications can be found in her medical record. Neuropsychological consultation was requested to provide assistance in the assessment of cognitive and emotional status and to provide recommendations and services. Prior to this most recent medical event, she was living at home with the assistance of her daughter. The patient has 6 children. Her about 33 years ago. The patient is a high school graduate. She worked at [employer] for approximately 30 years and 15 years for [employer]. Her daughter is very supportive. The patient is retired from [employer] 3 years ago. She discontinued driving about 3 years ago as a result of glaucoma. TECHNIQUES UTILIZED: Clinical interview, review of medical records, staff consultation and behavioral observation, mini-mental status exam 2 standard version, clock drawing and category fluency test. EXAMINATION FINDINGS: The patient was alert and cooperative with the assessment. She was somewhat vague in the description of events surrounding her early hospitalization and treatment. There is no evidence of aphasia. Her thoughts are logical and goal oriented. There is no evidence of thought disorder. She does not report auditory or visual hallucinations. There is no suicidal ideation. [facility] [address] [place] [address] CONSULTATION Name: ALBERTINA GUZMAN Room #: 504-1 ADM IN M.R.#: [id number] Admission: 01/22/18 Attend Phys: Aman Hui MD Discharge: Date of : 08/30/[birth year] Report #: [id number] Her symptoms include anxiety, depression, tiredness and fatigue and diminished appetite. She also has longstanding difficulty with sleep. Problems with sleep are longstanding. Difficulty with cognition is reported and includes memory and word finding. Her performance on the MMSE 2 brief version is in the mild range of impairment with a raw score of 13 of 16. She is 3 of 3 for initial registration, 5 of 5 for orientation to time and place. She was 0 of 3 for immediate recall of 3 items after a brief time delay and distraction. Her performance deteriorated on the MMSE 2 standard version to a raw score of 21 of 30, T score of 29 and percentile rank of 2 which is in the moderate range of impairment. She was 0 of 5 for serial 7's. The patient was also unable to copy a simple geometric design. The patient was unable to draw a clock, place the numbers or accurately set the hands at a designated time. Deficits in clock drawing are often seen with executive dysfunction. She is also presenting with perseveration and apraxia in upper extremity tasks. Verbal fluency was extremely low with a raw score of 4. Deficits in category fluency also suggest diminished thought organization, planning and problem solving. DIAGNOSTIC IMPRESSION: Major neurocognitive disorder (dementia), unspecified, without behavior disorder, moderate to severe. Unspecified depressive disorder with anxiety. RECOMMENDATIONS: The patient's delirium appears to have resolved. She is alert and oriented. However, underlying neurocognitive deficits are present. Additionally, she is taking medication with sedating features, e.g., hydrocodone that may be contributing to her presentation. She may benefit from reducing medication with sedating features to assist cognitive functioning. Use of an antidepressant medication, e.g., mirtazapine, will be of benefit to assist both with sleep and appetite. Verbal praise and complements about participation in therapy and this use of compensatory strategies in the home will assist his overall adjustment. Thank you very much for allowing me to provide the consultation on this patient. <ELECTRONICALLY SIGNED> By: Tomi Howard, PhD 01/26/18 1808 1325 0023 Tomi Howard, PhD /nt
--- NOTE | ~2018-01-20 | H ---
[facility] [place] [address] HISTORY AND PHYSICAL Name: ALBERTINA GUZMAN Room #: 504-1 ADM IN M.R.#: [id number] Admission: 01/22/18 Attend Phys: Aman Hui MD Discharge: Date of : [birth year] Report #: [id number] THIS REPORT FOR: //name// CC: Aman Matthews DATE OF SERVICE: 01/22/2018 HISTORY OF PRESENT ILLNESS: This is an 87-year-old female admitted to [facility] on 01/11/2018 with new onset AFib with RVR and hypertension urgency. She was originally admitted to the ICU with Cardiology following closely. She sustained a bradycardia process and required intubation, but with no CPR. She was evaluated by pulmonary and was able to be extubated. She is now on nasal cannula O2. She was also evaluated by GI and ENT for dysphagia that was felt to be multifactorial related to neuromuscular weakness secondary to chronic illnesses and her GERD. She underwent EGD, which showed no narrowing strictures or suspicious masses in the esophagus, although it did show tertiary esophageal contractions related to ineffective esophageal motility. Diet modifications were made by speech therapy. She had some encephalopathy after intubation that worsened yesterday. Neurology was consulted and stroke workup was negative. Her urine culture did come back positive for UTI. She also had an EEG done yesterday that was consistent with moderate diffuse cerebral dysfunction, which could be medication related versus dementia process. Due to her critical illness myopathy and other multiple comorbidities, she is being admitted to Inpatient Rehabilitation Unit for further therapy treatment. Today, resident is seen in her room. She does remain disoriented. She has some general muscle aches and overall weakness, otherwise denies new complaints. PAST MEDICAL HISTORY: Hypertension, hyperlipidemia, chronic kidney disease, asthma, sarcoidosis, meningioma, cardiomyopathy, degenerative joint disease, hiatal hernia, GERD, diverticulitis, recurrent falls, headaches. HABITS: She is a nonsmoker, no alcohol use, no illicit drug use. SOCIAL HISTORY: She is full code status. She lives in a house with her daughter and son. She utilized a walker premorbidly. She was independent, premorbid with grooming, feeding and toileting. She had a home health aide 2 times per week to assist with bathing and some light duty chores around the house. She has approximately 10-14 stairs to enter the home. ALLERGIES: TO LIPITOR AND NEOMYCIN. MEDICATIONS: Please see EMR for complete list. REVIEW OF SYSTEMS: Remainder of her 12-point review of systems is negative except as listed in HPI. [address] [address] HISTORY AND PHYSICAL Name: ALBERTINA GUZMAN Room #: [facility] ADM IN .R.#: [id number] Admission: 01/22/18 Attend Phys: Aman Hui MD Discharge: Date of : [birth year] Report #: [id number] PHYSICAL EXAMINATION: VITAL SIGNS: Blood pressure 170/94, pulse of 105, temperature 97.5. She is 99% oxygen sat. GENERAL: She is awake, alert. She is oriented to person. She is unsure of date or time or place. She does note she is at a facility and just not sure which one. She appears in no acute distress. HEENT: Normocephalic. EOMs are intact. No nystagmus noted. CARDIAC: Regular rate, S1, S2. LUNGS: Clear and diminished in the bases. ABDOMEN: Bowel sounds positive, soft, nontender, nondistended. SKIN: Warm, dry and intact. NEUROLOGIC: Cranial nerves 2-12 grossly intact. Sensation equal bilateral. EXTREMITIES: Nontender. No calf tenderness. She has functional range of motion in bilateral upper extremities. She is more limited in her lower extremities. Lower extremity strength is approximately 3/5. She was max assist for sit to stand. She was unable to stand straight upright, mod assist for toilet transfers. LABORATORY DATA: Chest x-ray 01/22/2018 shows small bilateral pleural effusions, new widespread perihilar nonconsolidative infiltrates, worsened aeration from prior study. Labs from 01/22/2018, sodium 140, potassium 4.2, BUN 16, creatinine 1.1, glucose 118. WBC 7.7, hemoglobin 9.3, platelets 158. Blood cultures negative to date. Urine culture on 01/21/2018 shows greater than 100,000 gram-negative rods. The 01/21/2018 MRI head shows chronic age-related changes with no acute appearing intracranial abnormalities identified. ASSESSMENT: 1. Critical illness myopathy. 2. Encephalopathy. 3. Dysphagia. 4. Acute respiratory failure. 5. Urinary tract infection. 6. Atrial fibrillation with rapid ventricular response. 7. Hypertension. 8. Cervical moderate degenerative joint disease. 9. History of asthma. 10. Sarcoidosis. 11. Dementia. PLAN: The patient has been admitted to inpatient rehabilitation. She will be on physical, occupational and speech therapies. She is on a dysphagia diet with aspiration precautions. She continues on antibiotics for her recurrent infections. The hospitalist, neurologist, Pulmonary, Infectious Disease, and Neuropsychology will continue to follow the patient. We will continue to make therapy recommendations. [address] [address] HISTORY AND PHYSICAL Name: ALBERTINA GUZMAN Room #: 504-1 ADM IN M.Isaac.#: [id number] Admission: 01/22/18 Attend Phys: Aman Hui MD Discharge: Date of : 08/30/[birth year] Report #: [id number] ADDENDUM Please see my prior consult and Kim Quezada's dictation with history and physical. I agree with the above. The patient was originally admitted with the new onset atrial fibrillation with rapid ventricular rate and hypertensive urgency. She had bradycardia, required intubation, but no CPR. She was noted to have an encephalopathy as well as critical illness myopathy. She was evaluated by GI and ENT for dysphagia, felt to be multifactorial related to neuromuscular weakness secondary to chronic illnesses and her GERD. EGD showed no narrowing, although it did show some tertiary esophageal contractions related to ineffective esophageal motility. Neurology saw her with stroke workup negative. EEG consistent with moderate to diffuse cerebral dysfunction. She was admitted for acute in-hospital inpatient rehabilitation. She does not have any calf tenderness. Full range of motion of the upper extremities. Oriented to person. Somewhat tangential. Functional range of motion of the upper extremities, 4/5 strength bilateral upper extremities with 3/5 bilateral lower extremities. She needs assistance with basic functional mobility skills. ASSESSMENT AND PLAN: As noted in the documentation. From a postadmission physician evaluation perspective, there are no relevant changes since the preadmission screening. Please see the above review of prior and current medical and functional conditions and comorbidities. Please see the patient's previous and current functional status. As far as risk of complication, she does have the multiple medical comorbidities as noted above. The initial plan of care involves the interdisciplinary acute inpatient rehabilitation program with the goal of maximizing her functional independence, so she can return back to the prior living situation. Measurable functional goals would be for her to become modified independent with transfers, mobility, and ADLs at least at the walker level. Prognosis is reasonably good with estimated length of stay probably at least 7-14 days pending progress. Potential barriers would include her multiple medical comorbidities and decreased functional status. By: 1418 1459 YAHIR Harry /nt
--- NOTE | ~2018-01-20 | EKG ---
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
--- NOTE | ~2018-01-20 | PLAN ---
[facility] [place] [address] REHAB UNIT PLAN OF CARE Name: ALBERTINA GUZMAN Room #: 504-1 DIS IN M.R.#: [id number] Admission: 01/22/18 Attend Phys: Aman Hui MD Discharge: 01/30/18 Date of : [birth year] Report #: [id number] THIS REPORT FOR: //name// CC: Aman Germana Byron DATE OF SERVICE: 01/23/2018 PROGRESS NOTE AND OVERALL PLAN OF CARE The patient is seen back today in followup. Last recorded temperature 37.2, pulse 102, respirations 18, blood pressure 138/67. She is alert, a little tangential with her thinking, but she does follow basic 1 step commands. Transfers are max assist, bed mobility was max assist. Lower body dressing is max assist. In speech, she is on a mechanical soft with all liquids. ASSESSMENT: 1. Critical illness myopathy. 2. Encephalopathy. 3. Dysphagia. 4. Acute respiratory failure. 5. Urinary tract infection. 6. Atrial fibrillation with rapid ventricular response. 7. Hypertension. 8. Cervical moderate degenerative joint disease. 9. History of asthma. 10. Sarcoidosis. 11. Noted some dementia. PLAN: The overall plan of care is based on the preadmission screen, post-admission physician evaluation and information garnered from therapy assessments. 1. Estimated length of stay is probably at least 7-14 days and likely longer as needed. 2. Medical prognosis is reasonably good. 3. Anticipated interventions includes the interdisciplinary acute inpatient rehabilitation program. 4. Anticipated functional outcomes would be for her to hopefully improve as far as functional mobility and ADLs and cognition, communication and hopefully be ambulatory at least at the walker level. 5. Discharge destination will be back to the home setting where she lives with her daughter and son. 6. Expected therapy by discipline includes PT and OT and speech 1 hour per day [address] [address] REHAB UNIT PLAN OF CARE Name: ALBERTINA GUZMAN Room #: 504-1 DIS IN M.R.#: [id number] Admission: 01/22/18 Attend Phys: Aman Hui MD Discharge: 01/30/18 Date of : [birth year] Report #: [id number] each five days a week throughout the duration of the acute inpatient rehabilitation stay. <ELECTRONICALLY SIGNED> By: Aman Hui MD 02/02/18 1221 [id number] [id number] Aman Hui MD /[facility]
[~2018-01-20 17:07] MED LIST changes: +ADVAIR 250-501 EACH INH; +BACTRIM DS TAB1 EACH PO; +CARDIZEM CD 18180 M3 PO; +CLONIDINE0.1 PO; +ELIQUIS2.5 MG PO; +HYDRALAZINE 10M10 MG PO; +MIRALAX17 GM PO; +ONDANSETRON HCL4 M2 PO; +OXYBUTYNIN 5 MG5 M2 PO; +TUMS PO; +ZETIA10 MG PO
[2018-01-20] MEDS ORDERED: MIRALAX17 GM PO (17:37)
[2018-01-20] MEDS ORDERED: COZAAR 50 MG TA50 M1 PO (17:37)
[2018-01-20] MEDS ORDERED: ELIQUIS5 MG PO (17:37)
[2018-01-20] MEDS ORDERED: PULMICORT0.5 MG/21 INH (17:37)
[2018-01-20] MEDS ORDERED: LIDOPATCH1 EACH TRANSDERM (17:37)
[2018-01-20] MEDS ORDERED: K-DUR 20 MEQ T20 MEQ PO ×2 (17:37→18:02)
[2018-01-20] MEDS ORDERED: ATENOLOL 25 MG25 M1 PO (17:37)
[2018-01-20] MEDS ORDERED: XALATAN2.5 ML OPHTHALMIC (17:37)
[2018-01-20] MEDS ORDERED: TUMS PO (17:37)
[2018-01-20] MEDS ORDERED: ZETIA10 MG PO (17:37)
[2018-01-20] MEDS ORDERED: SENNA-TIME S T1 EACH PO (17:37)
[2018-01-20] MEDS ORDERED: BACLOFEN 10MG T10 MG PO (17:37)
[2018-01-20] MEDS ORDERED: CATAPRES0.1 MG PO (17:37)
[2018-01-22] MEDS ORDERED: PANTOPRAZOLE SO40 M1 PO (11:22)
[2018-01-22] MEDS ORDERED: ROCEPHIN 11 GM/1001 IV (11:22)
[2018-01-22 15:21] VITALS: BP 153/88
[2018-01-22 21:11] VITALS: BP 171/92
[2018-01-23 07:48] LABS: HEMATOCRIT 31.3 % (37.0-47.0); HEMOGLOBIN 10.4 gm/dL (12.0-15.0); MCH 29.4 pg (26.0-34.0); MCHC 33.2 g/dL (28.0-37.0); MCV 88.5 fL (80.0-100.0); RBC 3.53 mil/uL (4.20-5.00); RDW 14.1 % (10.5-14.5); WBC 10.2 thou/uL (4.0-11.0)
[2018-01-23 07:55] LABS: CALCIUM 9.5 mg/dL (8.5-10.1); CREATININE 1.2 mg/dL (0.6-1.0); MAGNESIUM 1.9 mg/dL (1.8-2.4); POTASSIUM 3.6 mmol/L (3.5-5.1)
[2018-01-23 08:05] VITALS: BP 184/116
[2018-01-23 10:10] VITALS: BP 138/67
[2018-01-23 14:15] VITALS: BP 163/110
[2018-01-23 17:33] VITALS: BP 119/54
[2018-01-23 19:46] VITALS: BP 137/80
[2018-01-24 05:51] LABS: HEMATOCRIT 28.2 % (37.0-47.0); HEMOGLOBIN 9.5 gm/dL (12.0-15.0); MCH 29.4 pg (26.0-34.0); MCHC 33.6 g/dL (28.0-37.0); MCV 87.7 fL (80.0-100.0); RBC 3.22 mil/uL (4.20-5.00); RDW 13.9 % (10.5-14.5); WBC 8.3 thou/uL (4.0-11.0)
[2018-01-24 05:59] LABS: CREATININE 1.4 mg/dL (0.6-1.0); MAGNESIUM 1.8 mg/dL (1.8-2.4); POTASSIUM 3.6 mmol/L (3.5-5.1)
[2018-01-24 07:31] VITALS: BP 154/97
[2018-01-24 19:25] VITALS: BP 129/64
[2018-01-25 07:19] LABS: HEMATOCRIT 26.2 % (37.0-47.0); HEMOGLOBIN 8.9 gm/dL (12.0-15.0); MCH 29.9 pg (26.0-34.0); MCHC 33.8 g/dL (28.0-37.0); MCV 88.5 fL (80.0-100.0); RBC 2.96 mil/uL (4.20-5.00); RDW 14.2 % (10.5-14.5); WBC 7.6 thou/uL (4.0-11.0)
[2018-01-25 07:27] LABS: CALCIUM 8.6 mg/dL (8.5-10.1); CREATININE 1.4 mg/dL (0.6-1.0); MAGNESIUM 1.8 mg/dL (1.8-2.4); POTASSIUM 3.8 mmol/L (3.5-5.1)
[2018-01-25 09:50] VITALS: BP 122/51
[2018-01-25 20:00] VITALS: BP 125/54
[2018-01-26 05:47] VITALS: BP 137/76
[2018-01-26 05:54] LABS: HEMATOCRIT 25.6 % (37.0-47.0); HEMOGLOBIN 8.4 gm/dL (12.0-15.0); MCH 29.4 pg (26.0-34.0); MCHC 32.7 g/dL (28.0-37.0); MCV 89.6 fL (80.0-100.0); RBC 2.86 mil/uL (4.20-5.00); RDW 14.4 % (10.5-14.5)
[2018-01-26 06:10] LABS: CALCIUM 8.4 mg/dL (8.5-10.1); CREATININE 1.4 mg/dL (0.6-1.0); MAGNESIUM 1.9 mg/dL (1.8-2.4); POTASSIUM 3.9 mmol/L (3.5-5.1)
[2018-01-26 07:52] VITALS: BP 144/81
[2018-01-26 13:23] VITALS: BP 109/58
[2018-01-26 13:25] VITALS: BP 123/64; BP 135/61
[2018-01-26 19:25] VITALS: BP 145/84
[2018-01-27 08:07] VITALS: BP 153/70
[2018-01-27 19:15] VITALS: BP 159/93
[2018-01-28 05:40] VITALS: BP 158/98
[2018-01-28 07:38] VITALS: BP 157/91
[2018-01-28 12:40] LABS: ABSOLUTE NEUTROPHILS 2.5 thou/uL (1.4-8.2); BASOPHILS 1.1 % (0.0-2.0); EOSINOPHILS 9.4 % (0.0-3.0); HEMATOCRIT 27.9 % (37.0-47.0); HEMOGLOBIN 8.9 gm/dL (12.0-15.0); MCH 28.9 pg (26.0-34.0); MCHC 31.9 g/dL (28.0-37.0); MCV 90.5 fL (80.0-100.0); MONOCYTES 10.7 % (1.0-8.0); PLATELET COUNT 230 thou/uL (150-400); POLYS 49.8 % (36.0-66.0); RBC 3.08 mil/uL (4.20-5.00); RDW 14.8 % (10.5-14.5); WBC 5.1 thou/uL (4.0-11.0)
[2018-01-28 12:51] LABS: CALCIUM 8.9 mg/dL (8.5-10.1); CREATININE 1.5 mg/dL (0.6-1.0); POTASSIUM 4.8 mmol/L (3.5-5.1)
[2018-01-28 14:35] VITALS: BP 135/77
[2018-01-28 19:35] VITALS: BP 147/72
[2018-01-29 07:40] VITALS: BP 150/79
[2018-01-29 19:05] VITALS: BP 153/60
[2018-01-30 07:45] VITALS: BP 153/78
[2018-01-30] MEDS ORDERED: COZAAR 50 MG TA50 M1 PO (07:59)
[2018-01-30] MEDS ORDERED: HYDRALAZINE 10M10 MG PO (07:59)
[2018-01-30] MEDS ORDERED: ANBESOL9 GM TOP (07:59)
[2018-01-30] MEDS ORDERED: LOPRESSOR50 PO (07:59)
[2018-01-30] MEDS ORDERED: HYDROCORTISONE30 G9 TOP (07:59)
[2018-01-30] MEDS ORDERED: ELIQUIS5 MG PO (07:59)
[2018-01-30] MEDS ORDERED: NYAMYC15 GM TOP (07:59)
[2018-01-30 08:47] VITALS: BP 150/79
[2018-01-30 10:54] VITALS: BP 172/75
[2018-01-30 11:05] VITALS: BP 150/79
== END 2018-01-30 11:23 | disposition home health service (06) | DRG 91 ==
LOC: ENTRNSPT 01-30 10:51 → EDTRNSPTSTS 01-30 10:55
PROVIDERS: Nurse Practitioner; Nurse Practitioner Family
DX: G72.81 Critical illness myopathy (principal); G93.40 Encephalopathy, unspecified; J96.00 Acute respiratory failure, unspecified whether with hypoxia or hypercapnia; I50.33 Acute on chronic diastolic (congestive) heart failure; J18.9 Pneumonia, unspecified organism; N39.0 Urinary tract infection, site not specified; I42.9 Cardiomyopathy, unspecified; B37.0 Candidal stomatitis; I13.0 Hypertensive heart and chronic kidney disease with heart failure and stage 1 through stage 4 chronic kidney disease, or unspecified chronic kidney disease; J90 Pleural effusion, not elsewhere classified; N17.9 Acute kidney failure, unspecified; R13.10 Dysphagia, unspecified; I48.91 Unspecified atrial fibrillation; M47.892 Other spondylosis, cervical region; J45.909 Unspecified asthma, uncomplicated; D86.9 Sarcoidosis, unspecified; F03.90 Unspecified dementia, unspecified severity, without behavioral disturbance, psychotic disturbance, mood disturbance, and anxiety; I16.0 Hypertensive urgency; R00.1 Bradycardia, unspecified; N18.9 Chronic kidney disease, unspecified; E78.5 Hyperlipidemia, unspecified; H91.90 Unspecified hearing loss, unspecified ear; K21.9 Gastro-esophageal reflux disease without esophagitis; F01.50 Vascular dementia, unspecified severity, without behavioral disturbance, psychotic disturbance, mood disturbance, and anxiety; F41.8 Other specified anxiety disorders; I49.5 Sick sinus syndrome; H61.23 Impacted cerumen, bilateral; S00.522A Blister (nonthermal) of oral cavity, initial encounter; B96.20 Unspecified Escherichia coli [E. coli] as the cause of diseases classified elsewhere; Z88.8 Allergy status to other drugs, medicaments and biological substances; Z79.82 Long term (current) use of aspirin; Z79.899 Other long term (current) drug therapy; X58.XXXA Exposure to other specified factors, initial encounter; Y93.89 Activity, other specified; Y92.89 Other specified places as the place of occurrence of the external cause; Y99.8 Other external cause status
CPT/HCPCS: 10092

== ENCOUNTER 2018-02-22 16:26 | Emergency (ER) | payer OTHER ==
[~2018-02-22] VITALS: Ht 152.4 cm; Wt 60.8 kg
[~2018-02-22 16:26] MED LIST changes: +ANBESOL9 GM TOP; +ATENOLOL 25 MG25 M1 PO; +BACLOFEN 10MG T10 MG PO; +CATAPRES0.1 MG PO; +COZAAR 50 MG TA50 M1 PO; +ELIQUIS5 MG PO; +HYDROCORTISONE30 G9 TOP; +K-DUR 20 MEQ T20 MEQ PO; +LIDOPATCH1 EACH TRANSDERM; +LOPRESSOR50 PO; +NYAMYC15 GM TOP; +PANTOPRAZOLE SO40 M1 PO; +PULMICORT0.5 MG/21 INH; +ROCEPHIN 11 GM/1001 IV; +SENNA-TIME S T1 EACH PO; +XALATAN2.5 ML OPHTHALMIC
[2018-02-22 17:23] LABS: ABSOLUTE NEUTROPHILS 1.7 thou/uL (1.4-8.2); BASOPHILS 0.7 % (0.0-2.0); EOSINOPHILS 11.3 % (0.0-3.0); HEMATOCRIT 32.8 % (37.0-47.0); HEMOGLOBIN 10.8 gm/dL (12.0-15.0); LYMPHOCYTES 47.3 % (24.0-44.0); MCH 29.5 pg (26.0-34.0); MCHC 32.8 g/dL (28.0-37.0); MONOCYTES 10.3 % (1.0-8.0); PLATELET COUNT 148 thou/uL (150-400); POLYS 30.4 % (36.0-66.0); RBC 3.65 mil/uL (4.20-5.00); WBC 5.4 thou/uL (4.0-11.0)
[2018-02-22 17:33] LABS: CALCIUM 9.3 mg/dL (8.5-10.1); CREATININE 1.9 mg/dL (0.6-1.0); POTASSIUM 4.1 mmol/L (3.5-5.1)
[2018-02-22 17:34] LABS: MAGNESIUM 2.2 mg/dL (1.8-2.4)
[2018-02-22] MEDS ORDERED: PREDNISONE 20 M20 MG PO (18:55)
== END 2018-02-22 19:51 | disposition home or self-care (01) ==
LOC: ER 16:26
PROVIDERS: Emergency Medicine
DX: R21 Rash and other nonspecific skin eruption (principal); L29.9 Pruritus, unspecified; M25.461 Effusion, right knee; I12.9 Hypertensive chronic kidney disease with stage 1 through stage 4 chronic kidney disease, or unspecified chronic kidney disease; N18.3 Chronic kidney disease, stage 3 (moderate); Z88.1 Allergy status to other antibiotic agents

== ENCOUNTER 2018-03-12 20:58 | Inpatient (IN) | payer OTHER ==
[~2018-03-12] VITALS: Ht 154.9 cm; Wt 66.2 kg
--- NOTE | ~2018-03-12 | EKG ---
[address] [place] [address] ELECTROCARDIOGRAM REPORT Name: ALBERTINA GUZMAN Room #: 354-P ADM IN M.R.#: [id number] Admission: 03/12/18 Attend Phys: Kiko Kern MD Discharge: Date of : [birth year]/30/[birth year] Report #: [id number] THIS REPORT FOR: //name// [facility] Test Date: 2018-03-12 Test Time: 21:25:09 Pat Name: ALBERTINA GUZMAN Department: Room: Gender: F Shoe Polisher: SARIAH : 1930 Requested By: Wimler Ramos Order Number: [id number] MD: Baldo Pierre Measurements Intervals [place] Rate: 116 P: [place]: QRS: -29 QRSD: 75 T: -2 QT: 321 QTc: 446 Interpretive Statements Atrial fibrillation Borderline left axis deviation Low voltage, precordial leads Abnormal R-wave progression, late transition Borderline T wave abnormalities Compared to ECG 01/29/2018 19:28:36 No significant change was found Electronically Signed On 03-13-2018 8:31:47 CDT by Baldo Pierre [email or web address] <ELECTRONICALLY SIGNED> By: Baldo Pierre MD, [facility] 03/13/18 0831 24 24 Baldo Pierre MD, [facility] /EPI
[~2018-03-12 20:58] MED LIST changes: +PREDNISONE 20 M20 MG PO
[2018-03-12 20:59] VITALS: BP 122/84
[2018-03-12 21:26] LABS: BASOPHILS 0.7 % (0.0-2.0); HEMATOCRIT 34.4 % (37.0-47.0); HEMOGLOBIN 11.3 gm/dL (12.0-15.0); LYMPHOCYTES 25.3 % (24.0-44.0); MCH 29.9 pg (26.0-34.0); MCHC 32.9 g/dL (28.0-37.0); MONOCYTES 9.3 % (1.0-8.0); PLATELET COUNT 148 thou/uL (150-400); POLYS 62.7 % (36.0-66.0); RBC 3.78 mil/uL (4.20-5.00); RDW 15.5 % (10.5-14.5)
[2018-03-12 21:31] LABS: URINE BILIRUBIN NEGATIVE (Negative); URINE BLOOD NEGATIVE (Negative); URINE CLARITY CLEAR; URINE COLOR YELLOW; URINE GLUCOSE-RANDOM* NEGATIVE (Negative); URINE KETONES TRACE (Negative); URINE LEUKOCYTES TRACE (Negative); URINE NITRITE NEGATIVE (Negative); URINE PROTEIN (DIPSTICK) TRACE (Negative); URINE UROBILINOGEN 0.2 E.U./dl (0.2-1.0)
[2018-03-12 21:35] LABS: ANION GAP 12 mmol/L (7-16); BUN 19 mg/dL (7-18); CHLORIDE 109 mmol/L (98-107); CO2 22 mmol/L (21-32); CREATININE 1.4 mg/dL (0.6-1.0); GLUCOSE 114 mg/dL (74-106); POTASSIUM 3.9 mmol/L (3.5-5.1); SODIUM 143 mmol/L (136-145)
[2018-03-12 21:43] LABS: ALBUMIN 3.1 g/dL (3.4-5.0); SGOT 18 U/L (15-37); SGPT 26 U/L (30-65); TOTAL BILIRUBIN 0.7 mg/dL (<0.1-1.0); TOTAL PROTEIN 6.7 g/dL (6.4-8.2); TROPONIN-I < 0.04 ng/mL (<0.06)
[2018-03-12 21:55] LABS: BACTERIA 1-9 Few /HPF (None Seen); CASTS None Seen /LPF (None Seen); CRYSTALS None Seen /LPF (None Seen); SQUAMOUS 0-3 Few /LPF (0-3); URINE RBC 0-2 Rare /HPF (0-2); URINE WBC 0-5 Rare /HPF (0-5)
[2018-03-12 23:30] VITALS: BP 129/59
[2018-03-12 23:45] VITALS: BP 141/77
[2018-03-13 04:23] VITALS: BP 148/99
[2018-03-13 07:48] VITALS: BP 135/78
[2018-03-13 08:00] VITALS: BP 148/99
[2018-03-13 11:49] VITALS: BP 124/76
[2018-03-13] MEDS ORDERED: ALPRAZOLAM 0.50.5 M1 PO (15:18)
[2018-03-13] MEDS ORDERED: OXYBUTYNIN 5 MG5 M2 PO (15:19)
[2018-03-13] MEDS ORDERED: UNICOMPLEX M TA1 TA1 PO (15:20)
[2018-03-13] MEDS ORDERED: CLONIDINE0.1 PO (15:22)
[2018-03-13 15:40] VITALS: BP 135/71
[2018-03-13 19:57] VITALS: BP 118/67
[2018-03-14 04:29] VITALS: BP 133/64
[2018-03-14 05:29] LABS: HEMATOCRIT 35.4 % (37.0-47.0); HEMOGLOBIN 11.7 gm/dL (12.0-15.0); MCH 29.6 pg (26.0-34.0); RBC 3.94 mil/uL (4.20-5.00); WBC 7.1 thou/uL (4.0-11.0)
[2018-03-14 05:47] LABS: CALCIUM 8.8 mg/dL (8.5-10.1); CREATININE 1.3 mg/dL (0.6-1.0); MAGNESIUM 2.1 mg/dL (1.8-2.4); POTASSIUM 3.4 mmol/L (3.5-5.1)
[2018-03-14 07:37] VITALS: BP 131/74
[2018-03-14 11:45] VITALS: BP 128/84
[2018-03-14 16:56] VITALS: BP 113/56
[2018-03-14 20:00] VITALS: BP 136/76
[2018-03-15 04:20] VITALS: BP 140/70
[2018-03-15 05:59] LABS: HEMATOCRIT 34.8 % (37.0-47.0); HEMOGLOBIN 11.6 gm/dL (12.0-15.0); MCH 29.6 pg (26.0-34.0); MCHC 33.4 g/dL (28.0-37.0); MCV 88.6 fL (80.0-100.0); RBC 3.92 mil/uL (4.20-5.00); RDW 14.8 % (10.5-14.5)
[2018-03-15 06:08] LABS: CALCIUM 8.4 mg/dL (8.5-10.1); CREATININE 1.2 mg/dL (0.6-1.0); POTASSIUM 3.7 mmol/L (3.5-5.1)
[2018-03-15 07:21] VITALS: BP 146/73
[2018-03-15 11:25] VITALS: BP 105/70
[2018-03-15 15:17] VITALS: BP 101/60
[2018-03-15 19:35] VITALS: BP 113/67
[2018-03-16 03:50] VITALS: BP 146/84
[2018-03-16 05:40] LABS: HEMOGLOBIN 11.2 gm/dL (12.0-15.0); MCH 29.7 pg (26.0-34.0); MCV 89.9 fL (80.0-100.0); RBC 3.78 mil/uL (4.20-5.00); RDW 15.1 % (10.5-14.5); WBC 5.8 thou/uL (4.0-11.0)
[2018-03-16 05:52] LABS: CALCIUM 8.4 mg/dL (8.5-10.1); CREATININE 1.3 mg/dL (0.6-1.0); POTASSIUM 3.6 mmol/L (3.5-5.1)
[2018-03-16 08:00] VITALS: BP 148/88
[2018-03-16 11:25] VITALS: BP 108/71
[2018-03-16 15:24] VITALS: BP 104/62
[2018-03-16 19:26] VITALS: BP 101/62
[2018-03-16 22:40] VITALS: BP 127/72
[2018-03-17 08:06] VITALS: BP 109/62
[2018-03-17] MEDS ORDERED: LOPRESSOR50 PO (15:43)
[2018-03-17] MEDS ORDERED: ZETIA10 MG PO (15:43)
[2018-03-17] MEDS ORDERED: COZAAR 50 MG TA50 M1 PO (15:43)
[2018-03-17] MEDS ORDERED: MIRALAX17 GM PO (15:43)
[2018-03-17] MEDS ORDERED: COLACE100 MG PO (15:43)
[2018-03-17] MEDS ORDERED: CEFUROXIME500 MG PO (15:43)
[2018-03-17] MEDS ORDERED: VITAMIN D2000 UNIT PO (15:50)
== END 2018-03-17 18:00 | DRG 308 ==
LOC: ER 20:58 → EROBS 22:21 → 3W 22:21 → SICU 03-16 18:04
PROVIDERS: Emergency Medicine; Hospitalist; Nurse Practitioner Family; Physician Assistant
DX: I48.91 Unspecified atrial fibrillation (principal); G93.40 Encephalopathy, unspecified; N39.0 Urinary tract infection, site not specified; I12.9 Hypertensive chronic kidney disease with stage 1 through stage 4 chronic kidney disease, or unspecified chronic kidney disease; N18.3 Chronic kidney disease, stage 3 (moderate); D86.9 Sarcoidosis, unspecified; J45.909 Unspecified asthma, uncomplicated; E78.5 Hyperlipidemia, unspecified; F03.90 Unspecified dementia, unspecified severity, without behavioral disturbance, psychotic disturbance, mood disturbance, and anxiety; R79.89 Other specified abnormal findings of blood chemistry; K21.9 Gastro-esophageal reflux disease without esophagitis; B37.3 Candidiasis of vulva and vagina; L30.4 Erythema intertrigo; Z79.2 Long term (current) use of antibiotics; Z79.01 Long term (current) use of anticoagulants; Z79.82 Long term (current) use of aspirin; Z79.899 Other long term (current) drug therapy; Z88.8 Allergy status to other drugs, medicaments and biological substances; Z91.81 History of falling
CPT/HCPCS: 10879; 15001